=== PATIENT | male | born 1985 | race Caucasian/White ===

== ENCOUNTER 2024-04-23 07:01 | Emergency (ER) | payer SELFPAY ==
[2024-04-23 07:09] VITALS: BP 129/83
[2024-04-23 07:46] LABS: COVID-19 Antigen Positive (Negative)
[2024-04-23 07:54] VITALS: BP 123/83
[2024-04-23 08:00] VITALS: BP 124/72
[2024-04-23 08:16] LABS: % Basophils 0.5 % (0-2); % Eosinophils 0.3 % (0-6); % Immature Granulocytes 0.7 % (0-0.5); % Lymphocytes 16.4 % (20.5-51.1); % Monocytes 18.9 % (1.7-9.3); % Neutrophils 63.2 % (42.2-75.2); Absolute Monocytes 1.1 10^3/uL (0.1-0.6); Absolute Neutrophils 3.7 10^3/uL (1.4-6.5); Hematocrit 45.1 % (39.0-52.0); Hemoglobin 15.5 g/dL (13.0-18.0); Mean Corp Hgb Conc. 34.4 g/dL (33.0-37.0); Mean Corpuscular Hgb 30.9 pg (27.0-31.0); Mean Corpuscular Volume 89.8 fL (80.0-94.0); Mean Platelet Volume 10.4 fL (7.4-10.4); Nucleated Red Blood Cells % 0 % (-); Platelet Count 174 10^3/uL (130-400); Red Blood Cell Count 5.02 10^6/uL (4.70-6.10); Red Cell Dist. Width 12.9 % (11.5-14.5); White Blood Cell Count 5.9 10^3/uL (4.8-10.8)
--- NOTE | 2024-04-23 08:21 | ED.GENMED ---
History of Present Illness
General
Chief Complaint: Fever
Source: patient
Exam Limitations: none
Time Seen by Provider: 04/23/24 07:47
History of Present Illness
History of Present Illness:
Patient with myalgias. 104 fever last night. No sore throat abdominal pain urinary symptoms rash or other complaints. Patient is concerned because when he gives plasma and they removed the IV he had a clot in his left arm. He is asymptomatic
from that standpoint now.
Review of Systems
Review of Systems
Constitutional: Reports fever and chills
Respiratory: Reports cough
Cardiac: Denies chest pain
ABD/GI: Reports no symptoms
: Reports no symptoms
Phy Exam
Physical Exam
Physical Exam:
GENERAL: Alert and oriented in no apparent distress
EYE: Orbits normal.
NECK: Supple, no significant adenopathy.
ENT: Pharynx without erythema
CARDIAC: Regular rate and rhythm without any obvious murmurs.
LUNGS: Clear breath sounds,normal
ABDOMEN: Soft, without focal tenderness or distention
NEUROLOGICAL: Alert and oriented , grossly non-focal
SKIN: Warm and dry, no rash or lesion, no discoloration, skin intact.
MUSCULOSKELETAL: No edema,no deformity.Good color. No swelling to the left arm. No cord. No warmth or erythema.
PSYCH: Normal and appropriate interaction.
Course
Orders/Labs/Results
Orders:
Orders
04/23/24 07:15
COVID-19 Antigen Urgent
Source: Nasal Swab
Influenza A+B Rapid Molecular Urgent
MITALI Source: Nasal Swab
Specimen Description:
04/23/24 08:00
Basic Metabolic Panel Urgent
Complete Blood Count/With Diff Urgent
Abnormal Lab Results
04/23/24 04/23/24
07:15 08:00
Absolute Lymphs (auto) 1.0 L 10^3/uL
(1.2-3.4)
Absolute Monos (auto) 1.1 H 10^3/uL
(0.1-0.6)
Immature Gran % 0.7 H %
(0-0.5)
Lymphocytes % 16.4 L %
(20.5-51.1)
Monocytes % 18.9 H %
(1.7-9.3)
Glucose 106 H mg/dl
(70-99)
Calcium 8.3 L mg/dl
(8.4-10.2)
SARS-CoV-2 Antigen Positive A
(Negative)
04/23/24 08:00
04/23/24 08:00
Vital Signs
Initial and Last Documented VS:
Initial Vital Signs
Temp Pulse Resp BP Pulse Ox
99.4 F 86 18 129/83 97
04/23/24 07:09 04/23/24 07:09 04/23/24 07:09 04/23/24 07:09 04/23/24 07:09
Last Documented Vital Signs
Temp Pulse Resp BP Pulse Ox
99.4 F 73 16 124/72 97
04/23/24 07:09 04/23/24 08:02 04/23/24 08:02 04/23/24 08:00 04/23/24 08:00
MDM/Problems Addressed
Differential Diagnosis Includes:
Patient COVID-positive. Clinically stable nontoxic. As far as this stringy clot from the IV of his plasma infusion there is nothing to support an upper extremity DVT. He is no murmur. He has no petechia or purpura or unusual rash.
*Pulse Oximetry
Patient hypoxic: no
*Critical Care Note
Total Time (30-74mins, 75-104mins- exclusive of procedures): Not Applicable
Update Note
Update Note:
Medically stable. COVID-positive. Patient can stay at the [facility] tonight. Discharge
ED Attending Note
-
Portions of this chart may have been created with voice recognition software.� Occasional wrong word or��sound alike� substitutions may have occurred due to the inherent limitations of voice recognition software.
Discharge Plan
Departure
Patient Disposition: Home (Routine Discharge)
Date of Disposition: 04/23/24
Time of Disposition: 09:40
Patient with high blood pressure during this ER visit?: Yes
Discharge Problem:
COVID-19
Instructions: COVID-19 - ED discharge instructions, BLOOD PRESSURE
Referrals:
NONE,* [Family Provider] -
Interventions
Interventions:
*Risk Screen - Suicide Last Done: 04/23/24 07:13
*General Assessment Last Done: 04/23/24 08:02
*Neglect/Abuse Screening Last Done: 04/23/24 08:02
*ED COVID-19 Vaccine History Last Done: 04/23/24 08:02
ED- Neurological Assessment Last Done: 04/23/24 08:02
ED-Skin Assessment Last Done: 04/23/24 08:02
Discharge Date and Time
Print Language: MICRONESIAN
[2024-04-23 08:30] LABS: Blood Urea Nitrogen 15 mg/dl (9-20); Calcium 8.3 mg/dl (8.4-10.2); Carbon Dioxide 26 mmol/L (22-30); Chloride 103 mmol/L (98-107); Glucose 106 mg/dl (70-99); Potassium 4.3 mmol/L (3.5-5.1); Sodium 135 mmol/L (135-145); eGFR > 60.00
[2024-04-23 09:51] VITALS: BP 121/67
== END 2024-04-23 09:51 | disposition home or self-care (01) ==
LOC: EMR 07:01
PROVIDERS: EMERGENCY PHYSICIAN Emergency Medicine
DX: U07.1 COVID-19 (principal)
CPT/HCPCS: 99283; 80048; 85025; 87502; 87811